=== PATIENT | male | born 1975 | race Caucasian/White ===

== ENCOUNTER 2020-06-06 19:55 | Emergency (ER) | payer BC ==
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
== END 2020-06-06 21:38 | disposition left against medical advice (07) ==
LOC: JD.ED 19:55
DX: S30.1XXA Contusion of abdominal wall, initial encounter (principal); S19.9XXA Unspecified injury of neck, initial encounter; R04.2 Hemoptysis; Y04.0XXA Assault by unarmed brawl or fight, initial encounter
CPT/HCPCS: 99283; 99284

== ENCOUNTER 2020-07-28 17:52 | Emergency (ER) | payer BC ==
[2020-07-28] MEDS ORDERED: Sodium Chloride 0.9% 10 ML Syringe FLUSH PRN (18:08)
--- NOTE | 2020-07-28 18:54 | EDM.PDOC ---
ED HPI GENERAL MEDICAL PROBLEM - General Chief Complaint: Respiratory Problem Stated Complaint: DIZZY,SOB AND SWELLING Time Seen by Provider: 07/28/20 18:08 Source of Information: Reports: Patient, RN Notes Reviewed History Limitations: Reports: No Limitations - History of Present Illness INITIAL COMMENTS - FREE TEXT/NARRATIVE: Patient is a 45-year-old male presenting to the emergency department with complaints of episodes of severe cough and subsequent shortness of breath. He was hospitalized at [facility] in [place] with a discharge 5 days ago. Significant other states that he was diagnosed with COPD, lymphoma, pneumonia, kidney disease and congestive heart failure. He was sent home on prednisone and amoxicillin which she is still taking. He also takes amlodipine, Spiriva, Xarelto, magnesium, and Bumex. Patient denies any chest pain. He does not feel short of breath at this time. States he will wake in the morning and during the evening choking on sputum. He describes it as yellowish in color and is occasionally blood-tinged. Significant other reports that while hospitalized at [facility] in [place], he did have a bronchoscopy completed and did not show any abnormalities within his lungs. He continues to smoke 1/2 pack of cigarettes per day and and also consumes a gallon of alcohol every 2 days. Patient is a poor historian. He does not know what medications he takes, and defers to his significant other for this information. He states that he does not want blood work completed and just wants breathing treatments to go home with. His significant other states that while in the hospital, he was receiving albuterol and Pulmicort breathing treatments which helped his symptoms. He was tested for Covid 5 days ago and found to be negative. He denies any fever. Symptoms of cough and shortness of breath have been consistent over the last few weeks. - Related Data Allergies Allergy/AdvReac Type Severity Reaction Status Date / Time No Known Allergies Allergy Verified 07/28/20 18:05 Home Meds: Home Meds Albuterol/Ipratropium [DuoNeb 3.0-0.5 MG/3 ML] 3 ml .XX Q4H PRN #15 neb 07/28/20 [Rx] Past Medical History - Past Health History Medical/Surgical History: Denies Medical/Surgical History Social & Family History - Tobacco Use Tobacco Use Status *Q: Current Every Day Tobacco User Years of Tobacco use: 30 Packs/Tins Daily: 0.5 - Caffeine Use Caffeine Use: Reports: None - Recreational Drug Use Recreational Drug Use: No ED ROS GENERAL - Review of Systems Review Of Systems: See Below Constitutional: Reports: No Symptoms HEENT: Reports: No Symptoms Respiratory: Reports: Shortness of Breath, Cough Cardiovascular: Reports: No Symptoms Endocrine: Reports: No Symptoms GI/Abdominal: Reports: No Symptoms : Reports: No Symptoms Musculoskeletal: Reports: No Symptoms Skin: Reports: No Symptoms Neurological: Reports: No Symptoms Psychiatric: Reports: No Symptoms Hematologic/Lymphatic: Reports: No Symptoms Immunologic: Reports: No Symptoms ED EXAM, GENERAL - Physical Exam Exam: See Below Exam Limited By: No Limitations General Appearance: Alert, WD/WN, No Apparent Distress Respiratory/Chest: No Respiratory Distress, Lungs Clear, Normal Breath Sounds, No Accessory Muscle Use, Chest Non-Tender Cardiovascular: Normal Peripheral Pulses, Regular Rate, Rhythm, No Edema, No Gallop, No JVD, No Murmur, No Rub GI/Abdominal: Normal Bowel Sounds, Soft, Non-Tender, No Organomegaly, No Distention, No Abnormal Bruit, No Mass Neurological: Alert, Oriented, CN II-XII Intact, Normal Cognition, Normal Gait, Normal Reflexes, No Motor/Sensory Deficits Psychiatric: Normal Affect, Normal Mood Skin Exam: Warm, Dry, Intact, Normal Color, No Rash Course - Vital Signs Last Recorded V/S: Last Vital Signs Temp 97.2 F 07/28/20 18:00 Pulse 66 07/28/20 18:00 Resp 16 07/28/20 18:00 BP 107/83 07/28/20 18:00 Pulse Ox 94 L 07/28/20 18:00 - Orders/Labs/Meds Meds: Medications Discontinued Medications Generic Name Dose Route Start Last Admin Trade Name Freq PRN Reason Stop Dose Admin Sodium Chloride 10 ml 07/28/20 18:08 Saline Flush FLUSH ASDIRECTED PRN Keep Vein Open - Re-Assessments/Exams Free Text/Narrative Re-Assessment/Exam: Patient is a 45-year-old male presenting to the emergency department with complaints of a harsh productive cough with subsequent shortness of breath. He has a diagnosed history of CHF, emphysema, COPD, lymphoma, and pneumonia. He is refusing blood work however, he has agreed to a chest x-ray. Discussed with the patient and his significant other that I am not going to force any treatment on him, however I will have him sign that he has declined blood work as this would be required for definitive diagnosis. I have ordered a 1 view chest x- ray. He is not wheezy at the time my exam, however discussed that I would be willing to send him home with DuoNeb breathing treatments as well as a nebulizer. He is currently on an oral steroid, and without further blood work, I will not be starting him on Pulmicort. He states he does have an appointment with his chemical laboratory tester, patient portal representative, and brickmason contractor, next week in [place]. He states that he will also see Dr. oCdy. 07/28/20 19:01 X-ray shows no evidence of pulmonary vascular congestion. There are no consolidations. Patient continues to refuse blood work. AMA paperwork for refusal of medical screening has been completed. I will provide him with DuoNeb breathing treatments as well as a nebulizer machine. Discharge instructions as documented. Departure - Departure Time of Disposition: 19:06 Disposition: Home, Self-Care 01 Clinical Impression: COPD (chronic obstructive pulmonary disease) Qualifiers: COPD type: unspecified COPD Qualified Code(s): J44.9 - Chronic obstructive pulmonary disease, unspecified - Discharge Information Prescriptions: Albuterol/Ipratropium [DuoNeb 3.0-0.5 MG/3 ML] 3 ml .XX Q4H PRN #15 neb PRN Reason: Shortness Of Breath Instructions: Chronic Obstructive Pulmonary Disease Exacerbation, [id number] Referrals: Tuyet Cody MD [Primary Care Provider] - Forms: ED Department Discharge Additional Instructions: You were seen in the emergency department today for recurrent severe coughing episodes with shortness of breath. Chest x-ray was completed and showed no acute abnormalities. You refused blood work at this time, although this would be beneficial to definitively diagnose you. You have been provided with a nebulizer machine as well as DuoNeb breathing treatments. He is use as needed for cough and shortness of breath. He should follow-up with your primary care provider, Dr. Cody, soon as possible, and keep your appointment with your specialist in [place]. If you experience any new or worsening symptoms, return to the emergency department for reevaluation. Sepsis Event Note (ED) - Evaluation Sepsis Screening Result: No Definite Risk
--- NOTE | 2020-07-29 08:41 | CR ---
PROCEDURE INFORMATION: Exam: XR Chest, 1 View Exam date and time: 07/28/2020 6:00 PM Age: 45 years old Clinical indication: Patient HX: Cough, SOB TECHNIQUE: Imaging protocol: XR of the chest Views: 1 view. COMPARISON: No relevant prior studies available. FINDINGS: Lungs: There is small linear left basilar opacity. No focal consolidation. Pleural space: Unremarkable. No pleural effusion. No pneumothorax. Heart/Mediastinum: Unremarkable. No cardiomegaly. Bones/joints: Unremarkable. IMPRESSION: Left lower lung scarring versus subsegmental atelectasis. Thank you for allowing us to participate in the care of your patient. Dictated and Authenticated by: Ehsan Milian MD 07/28/2020 8:12 PM Central Time ([place] & [place]) [facility]
== END 2020-07-28 19:16 | disposition home or self-care (01) ==
LOC: JD.ED 17:52
DX: J44.9 Chronic obstructive pulmonary disease, unspecified (principal); F17.210 Nicotine dependence, cigarettes, uncomplicated
CPT/HCPCS: 71045; 71045-26; 99283; 99284-25

== ENCOUNTER 2020-12-19 06:44 | Emergency (ER) | payer BC ==
[2020-12-19] MEDS ORDERED: Sodium Chloride 0.9% 10 ML Syringe FLUSH PRN (07:00)
[2020-12-19] MEDS ORDERED: Sodium Chloride 0.9% 1,000 ML IV SCH (07:00)
[2020-12-19] MEDS ORDERED: Diltiazem 50 MG/10 ML SDV IVPUSH ONE (07:01)
--- NOTE | 2020-12-19 07:08 | EDM.PDOC ---
ED HPI GENERAL MEDICAL PROBLEM - General Chief Complaint: Chest Pain Stated Complaint: CHEST PAIN Time Seen by Provider: 12/19/20 06:54 Source of Information: Reports: Patient History Limitations: Reports: No Limitations - History of Present Illness INITIAL COMMENTS - FREE TEXT/NARRATIVE: The patient presents with chest pain and shortness of breath. He woke up with this at 0330. The chest pain has improved but he is still short of breath and it feels like his heart is racing. He has no fever, chills, cough, congestion, runny nose, abdominal pain, nausea or vomiting. He does have a history of hypertension, atrial fibrillation, [place] and hypothyroidism. He is on eliquis 2 times per day. He admits to being a heavy drinker years ago but he has quit. Onset: Sudden Duration: Hour(s): Location: Reports: Chest Quality: Reports: Sharp Severity: Mild Improves with: Reports: None Worsens with: Reports: None Associated Symptoms: Reports: Chest Pain, Shortness of Breath. Denies: Cough, Fever/Chills, Headaches, Nausea/Vomiting Middle Chest Pain Score (Numeric/FACES): 9 - Related Data Allergies Allergy/AdvReac Type Severity Reaction Status Date / Time No Known Allergies Allergy Verified 12/19/20 06:52 Home Meds: Home Meds Apixaban [Eliquis] 5 mg PO BID 12/19/20 [History] Ipratropium/Albuterol Sulfate [Iprat-Albut 0.5-3(2.5) mg/3 ml] 3 ml NEB DAILY 12/19/20 [History] Levothyroxine [Synthroid] 100 mcg PO DAILY 12/19/20 [History] Magnesium 400 mg PO DAILY 12/19/20 [History] Metoprolol Succinate 200 mg PO DAILY 12/19/20 [History] Potassium Chloride 20 meq PO DAILY #30 tablet.er 12/19/20 [Rx] Tiotropium [Spiriva HandiHaler] 18 mcg INH DAILY 12/19/20 [History] atorvaSTATin [Lipitor] 20 mg PO DAILY 12/19/20 [History] Past Medical History - Past Health History Medical/Surgical History: Denies Medical/Surgical History Cardiovascular History: Reports: Afib, Hypertension, [place] Respiratory History: Reports: Asthma, COPD Endocrine/Metabolic History: Reports: Hypothyroidism - Past Surgical History HEENT Surgical History: Reports: Tonsillectomy, Other (See Below) Other HEENT Surgeries/Procedures: ear sx Social & Family History - Tobacco Use Tobacco Use Status *Q: Current Every Day Tobacco User Years of Tobacco use: 30 Packs/Tins Daily: 3 - Caffeine Use Caffeine Use: Reports: Soda - Recreational Drug Use Recreational Drug Use: No ED ROS GENERAL - Review of Systems Review Of Systems: See Below Constitutional: Reports: No Symptoms HEENT: Reports: No Symptoms Respiratory: Reports: Shortness of Breath. Denies: Cough Cardiovascular: Reports: Chest Pain, Palpitations Endocrine: Reports: No Symptoms GI/Abdominal: Reports: No Symptoms : Reports: No Symptoms Musculoskeletal: Reports: No Symptoms ED EXAM, GENERAL - Physical Exam Exam: See Below Exam Limited By: No Limitations General Appearance: Alert, No Apparent Distress Ears: Normal External Exam Nose: Normal Inspection Throat/Mouth: Normal Inspection Head: Atraumatic, Normocephalic Neck: Normal Inspection Respiratory/Chest: No Respiratory Distress, Lungs Clear, Normal Breath Sounds Cardiovascular: No Edema, No Murmur, Tachycardia, Irregularly Irregular GI/Abdominal: Soft, Non-Tender, No Organomegaly, No Mass Back Exam: Normal Inspection Extremities: Normal Inspection #1 Interpretation EKG Date: 12/19/20 Time: 06:48 Rhythm: A-Fib Rate (Beats/Min): 140 [place]: LAD-Left [place] Deviation P-Wave: Absent QRS: Normal ST-T: Normal QT: Normal Course - Vital Signs Last Recorded V/S: Last Vital Signs Temp 97.1 F 12/19/20 07:29 Pulse 112 H 12/19/20 07:29 Resp 13 12/19/20 07:29 BP 115/78 12/19/20 07:29 Pulse Ox 94 L 12/19/20 07:29 - Orders/Labs/Meds Orders: Active Orders 24 hr Category Date Time Status Cardiac Monitoring [RC] . DIRECTED Care 12/19/20 07:00 Active EKG Documentation Completion [RC] STAT Care 12/19/20 07:00 Active Peripheral IV Care [RC] . DIRECTED Care 12/19/20 07:00 Active Diltiazem [Cardizem] 100 mg Med 12/19/20 07:15 Active Sodium Chloride 0.9% [Normal Saline] 100 ml IV TITRATE Sodium Chloride 0.9% [Normal Saline] 1,000 ml Med 12/19/20 07:00 Active IV ASDIRECTED Sodium Chloride 0.9% [Saline Flush] Med 12/19/20 07:00 Active 10 ml FLUSH ASDIRECTED PRN Peripheral IV Insertion Adult [OM.PC] Stat Oth 12/19/20 07:00 Ordered Medication Orders Diltiazem HCl 100 mg/ Sodium (Chloride) 100 mls @ 10 mls/hr IV TITRATE PRICE; Protocol Last Admin: 12/19/20 07:20 Dose: 10 mg/hr, 10 mls/hr Documented by: KAROLYN Sodium Chloride (Normal Saline) 1,000 mls @ 125 mls/hr IV ASDIRECTED PRICE Last Admin: 12/19/20 07:20 Dose: 125 mls/hr Documented by: KAROLYN Sodium Chloride (Sodium Chloride 0.9% 10 Ml Syringe) 10 ml FLUSH ASDIRECTED PRN PRN Reason: Keep Vein Open Last Admin: 12/19/20 07:20 Dose: 10 ml Documented by: KAROLYN Labs: Laboratory Tests 12/19/20 12/19/20 12/19/20 Range/Units 06:50 06:50 06:50 WBC 6.70 (4.23-9.07) K/mm3 RBC 4.24 L (4.63-6.08) M/mm3 Hgb 14.8 (13.7-17.5) gm/dl Hct 43.9 (40.1-51.0) % MCV 103.5 H (79.0-92.2) fl MCH 34.9 H (25.7-32.2) pg MCHC 33.7 (32.2-35.5) g/dl RDW Std Deviation 52.7 H (35.1-43.9) fL Plt Count 324 (163-337) K/mm3 MPV 9.6 (9.4-12.3) fl Neut % (Auto) 64.0 (34.0-67.9) % Lymph % (Auto) 20.4 L (21.8-53.1) % Haskell % (Auto) 12.4 H (5.3-12.2) % Eos % (Auto) 2.5 (0.8-7.0) Baso % (Auto) 0.6 (0.1-1.2) % Neut # (Auto) 4.28 (1.78-5.38) K/mm3 Lymph # (Auto) 1.37 (1.32-3.57) K/mm3 [place] # (Auto) 0.83 H (0.30-0.82) K/mm3 Eos # (Auto) 0.17 (0.04-0.54) K/mm3 Baso # (Auto) 0.04 (0.01-0.08) K/mm3 Sodium 140 (136-145) mEq/L Potassium 3.0 L (3.5-5.1) mEq/L Chloride 100 (98-107) mEq/L Carbon Dioxide 25 (21-32) mEq/L Anion Gap 18.0 H (5-15) BUN 17 (7-18) mg/dL Creatinine 1.3 (0.7-1.3) mg/dL Est Cr Clr Drug Dosing 74.82 mL/min Estimated GFR (MDRD) 59 (>60) mL/min BUN/Creatinine Ratio 13.1 L (14-18) Glucose 98 (74-106) mg/dL Calcium 8.7 (8.5-10.1) mg/dL Magnesium 1.6 L (1.8-2.4) mg/dl Total Bilirubin 0.5 (0.2-1.0) mg/dL AST 34 (15-37) U/L ALT 23 (16-63) U/L Alkaline Phosphatase 79 (46-116) U/L Troponin I < 0.017 (0.00-0.056) ng/mL Total Protein 7.2 (6.4-8.2) g/dl Albumin 3.8 (3.4-5.0) g/dl Globulin 3.4 gm/dL Albumin/Globulin Ratio 1.1 (1-2) Free T4 0.92 (0.76-1.46) ng/dL TSH 3rd Generation 74.502 H (0.358-3.74) uIU/mL SARS-CoV-2 RNA (ADRIANA) (NEGATIVE) 12/19/20 Range/Units 07:22 WBC (4.23-9.07) K/mm3 RBC (4.63-6.08) M/mm3 Hgb (13.7-17.5) gm/dl Hct (40.1-51.0) % MCV (79.0-92.2) fl MCH (25.7-32.2) pg MCHC (32.2-35.5) g/dl RDW Std Deviation (35.1-43.9) fL Plt Count (163-337) K/mm3 MPV (9.4-12.3) fl Neut % (Auto) (34.0-67.9) % Lymph % (Auto) (21.8-53.1) % [place] % (Auto) (5.3-12.2) % Eos % (Auto) (0.8-7.0) Baso % (Auto) (0.1-1.2) % Neut # (Auto) (1.78-5.38) K/mm3 Lymph # (Auto) (1.32-3.57) K/mm3 [place] # (Auto) (0.30-0.82) K/mm3 Eos # (Auto) (0.04-0.54) K/mm3 Baso # (Auto) (0.01-0.08) K/mm3 Sodium (136-145) mEq/L Potassium (3.5-5.1) mEq/L Chloride (98-107) mEq/L Carbon Dioxide (21-32) mEq/L Anion Gap (5-15) BUN (7-18) mg/dL Creatinine (0.7-1.3) mg/dL Est Cr Clr Drug Dosing mL/min Estimated GFR (MDRD) (>60) mL/min BUN/Creatinine Ratio (14-18) Glucose (74-106) mg/dL Calcium (8.5-10.1) mg/dL Magnesium (1.8-2.4) mg/dl Total Bilirubin (0.2-1.0) mg/dL AST (15-37) U/L ALT (16-63) U/L Alkaline Phosphatase (46-116) U/L Troponin I (0.00-0.056) ng/mL Total Protein (6.4-8.2) g/dl Albumin (3.4-5.0) g/dl Globulin gm/dL Albumin/Globulin Ratio (1-2) Free T4 (0.76-1.46) ng/dL TSH 3rd Generation (0.358-3.74) uIU/mL SARS-CoV-2 RNA (ADRIANA) Negative (NEGATIVE) Meds: Medications Generic Name Dose Route Start Last Admin Trade Name Freq PRN Reason Stop Dose Admin Diltiazem HCl 100 mg/ Sodium 100 mls @ 10 mls/hr 12/19/20 07:15 12/19/20 07:20 Chloride IV 10 mg/hr TITRATE PRICE 10 mls/hr Administration Protocol 10 MG/HR Sodium Chloride 1,000 mls @ 125 mls/hr 12/19/20 07:00 12/19/20 07:20 Normal Saline IV 125 mls/hr ASDIRECTED PRICE Administration Sodium Chloride 10 ml 12/19/20 07:00 12/19/20 07:20 Sodium Chloride 0.9% 10 Ml Syringe FLUSH 10 ml ASDIRECTED PRN Administration Keep Vein Open Discontinued Medications Generic Name Dose Route Start Last Admin Trade Name Freq PRN Reason Stop Dose Admin Diltiazem HCl 10 mg 12/19/20 07:01 12/19/20 07:19 Diltiazem 50 Mg/10 Ml Sdv IVPUSH 12/19/20 07:02 10 mg ONETIME ONE Administration - Re-Assessments/Exams Free Text/Narrative Re-Assessment/Exam: 12/19/20 07:07 I ordered an IV NS at 125mL/hr, cardizem bolus 10mg IV and a cardizem drip at 10mg/hr, EKG, CXR and labs. His EKG shows atrial fibrillation at a rate of 140. I ordered a cardizem bolus and drip. 12/19/20 10:05 His CBC looks good. His K was low at 3. His anion gap was elevated at 18. His magnesium was low at 1.6. His troponin is negative. His TSH was elevated at 74.502. I checked a T4 and it was normal. He is COVID negative. He did convert a few times here in the ER and then he would go right back into it. I was then going to admit him but he does not want to be admitted. I will keep him on his same doses. I will add potassium and have him recheck his TSH in a week. His rate has slowed down but he has not converted like I had hoped. Departure - Departure Time of Disposition: 10:10 Disposition: Home, Self-Care 01 Condition: Good Clinical Impression: Atypical chest pain, Atrial fibrillation with RVR, Hypokalemia Prescriptions: Potassium Chloride 20 meq PO DAILY #30 tablet.er Forms: ED Department Discharge Additional Instructions: Take your medications as prescribed. Take the potassium daily. You thyroid stimulating hormone test was elevated. Have that rechecked within a week. Please return if you are worse. Sepsis Event Note (ED) - Evaluation Sepsis Screening Result: No Definite Risk - Focused Exam Vital Signs: Vital Signs Temp Pulse Resp BP Pulse Ox 12/19/20 07:29 97.1 F 112 H 13 115/78 94 L 12/19/20 06:49 96.8 F L 157 H 17 119/86 96 - My Orders Last 24 Hours: My Active Orders 12/19/20 07:00 Cardiac Monitoring [RC] . DIRECTED EKG Documentation Completion [RC] STAT Peripheral IV Care [RC] . DIRECTED Sodium Chloride 0.9% [Normal Saline] 1,000 ml IV ASDIRECTED Sodium Chloride 0.9% [Saline Flush] 10 ml FLUSH ASDIRECTED PRN Peripheral IV Insertion Adult [OM.PC] Stat 12/19/20 07:15 Diltiazem [Cardizem] 100 mg Sodium Chloride 0.9% [Normal Saline] 100 ml IV TITRATE - Assessment/Plan Last 24 Hours: My Active Orders 12/19/20 07:00 Cardiac Monitoring [RC] . DIRECTED EKG Documentation Completion [RC] STAT Peripheral IV Care [RC] . DIRECTED Sodium Chloride 0.9% [Normal Saline] 1,000 ml IV ASDIRECTED Sodium Chloride 0.9% [Saline Flush] 10 ml FLUSH ASDIRECTED PRN Peripheral IV Insertion Adult [OM.PC] Stat 12/19/20 07:15 Diltiazem [Cardizem] 100 mg Sodium Chloride 0.9% [Normal Saline] 100 ml IV TITRATE
[2020-12-19] MEDS ORDERED: Diltiazem 100 MG in Sodium Chloride 0.9% 100 ML IV SCH (07:15)
--- NOTE | 2020-12-19 08:40 | CR ---
Chest: Portable view of the chest was obtained. Comparison: No prior chest imaging is available. Minimal linear densities are noted within the lateral left costophrenic angle compatible with slight scarring or minimal atelectasis. Lungs are clear with no acute parenchymal change otherwise being seen. Heart size is normal. Slight tortuosity of the thoracic aorta is seen. Impression: 1. Nothing acute is appreciated on portable chest x-ray. Diagnostic code #2
== END 2020-12-19 10:21 | disposition home or self-care (01) ==
LOC: JD.ED 06:44
DX: I48.91 Unspecified atrial fibrillation (principal); R07.89 Other chest pain; E87.6 Hypokalemia; I10 Essential (primary) hypertension; I25.2 Old myocardial infarction; J44.9 Chronic obstructive pulmonary disease, unspecified; E03.9 Hypothyroidism, unspecified; Z79.899 Other long term (current) drug therapy; Z72.0 Tobacco use; Z79.01 Long term (current) use of anticoagulants
CPT/HCPCS: 36415; 71045; 80053; 83735; 84439; 84443; 84484; 85025; 87635; 93005; 96365; 96366; 99285; J3490; J7030; 93010; 99284; U0002

== ENCOUNTER 2021-02-03 06:39 | Emergency (ER) | payer BC ==
[2021-02-03] MEDS ORDERED: Diltiazem 50 MG/10 ML SDV IVPUSH ONE (07:14)
[2021-02-03] MEDS ORDERED: Aspirin 81 MG Tab.Chew PO ONE (07:14)
[2021-02-03] MEDS ORDERED: Diltiazem 100 MG in Sodium Chloride 0.9% 100 ML IV SCH (07:15)
--- NOTE | 2021-02-03 07:17 | EDM.PDOC ---
ED HPI GENERAL MEDICAL PROBLEM - General Chief Complaint: Chest Pain Stated Complaint: CHEST PAIN Time Seen by Provider: 02/03/21 07:10 - History of Present Illness INITIAL COMMENTS - FREE TEXT/NARRATIVE: 45-year-old male presents to the emergency room with shortness of breath chest discomfort palpitations. This started around 4:00 this morning. He awoke with it. He is got some shortness of breath and some chest discomfort. He has done this in the past. He has a history of atrial fib and has been here in the past with the rapid ventricular response. He presents the emergency room with a pulse in the 140s in a similar scenario as to a prior visit. The patient describes episodes like this that occur frequently however this episode is a little worse than most the other ones. Patient is not positive what medications he is actually taking at this time. Patient denies any other complaints. Patient has some underlying lung problems. Uses Spiriva for this. He is treated for hypothyroidism. Chest Pain Score (Numeric/FACES): 8 - Related Data Allergies Allergy/AdvReac Type Severity Reaction Status Date / Time No Known Allergies Allergy Verified 02/03/21 06:50 Home Meds: Home Meds Apixaban [Eliquis] 5 mg PO BID 12/19/20 [History] Ipratropium/Albuterol Sulfate [Iprat-Albut 0.5-3(2.5) mg/3 ml] 3 ml NEB DAILY 12/19/20 [History] Levothyroxine [Synthroid] 100 mcg PO DAILY 12/19/20 [History] Magnesium 400 mg PO DAILY 12/19/20 [History] Metoprolol Succinate 200 mg PO DAILY 12/19/20 [History] Potassium Chloride 20 meq PO DAILY #30 tablet.er 12/19/20 [Rx] Tiotropium [Spiriva HandiHaler] 18 mcg INH DAILY 12/19/20 [History] atorvaSTATin [Lipitor] 20 mg PO DAILY 12/19/20 [History] Past Medical History - Past Health History Medical/Surgical History: Denies Medical/Surgical History Cardiovascular History: Reports: Afib, Hypertension, NC Respiratory History: Reports: Asthma, COPD Endocrine/Metabolic History: Reports: Hypothyroidism - Infectious Disease History Infectious Disease History: Reports: None - Past Surgical History HEENT Surgical History: Reports: Tonsillectomy, Other (See Below) Other HEENT Surgeries/Procedures: ear sx Social & Family History - Tobacco Use Tobacco Use Status *Q: Current Every Day Tobacco User Years of Tobacco use: 20 Packs/Tins Daily: 2 - Caffeine Use Caffeine Use: Reports: Soda - Recreational Drug Use Recreational Drug Use: No ED ROS GENERAL - Review of Systems Review Of Systems: See Below Constitutional: Reports: No Symptoms HEENT: Reports: No Symptoms Respiratory: Reports: Shortness of Breath. Denies: Pleuritic Chest Pain Cardiovascular: Reports: Chest Pain, Palpitations. Denies: Edema, Syncope Endocrine: Reports: No Symptoms GI/Abdominal: Reports: No Symptoms : Reports: No Symptoms Musculoskeletal: Reports: No Symptoms ED EXAM, GENERAL - Physical Exam Exam: See Below Exam Limited By: No Limitations General Appearance: Alert, No Apparent Distress, Other (On telemetry he is in A. fib with RVR rates approximately 140 as high as 157 and his lowest the low 130s from what I have seen.) Head: Atraumatic, Normocephalic Neck: Normal Inspection, Supple, Non-Tender, Full Range of Motion Respiratory/Chest: No Respiratory Distress, Lungs Clear, Normal Breath Sounds Cardiovascular: No Edema, No Murmur, Tachycardia, Irregularly Irregular GI/Abdominal: Normal Bowel Sounds, Soft, Non-Tender Back Exam: Normal Inspection. No: CVA Tenderness (L), CVA Tenderness (R) Extremities: Normal Inspection, No Pedal Edema #1 Interpretation EKG Date: 02/03/21 Rhythm: Other (Atrial fibrillation with rapid ventricular response rate 130 but is high as the 170s as low as the 90s) Widener: RAD-Right Widener Deviation P-Wave: Absent QRS: Other (Normal duration low voltage) ST-T: Other (Nonspecific nondiagnostic subtle changes probably related to the tachycardia) QT: Normal Comparison: No Change EKG Interpretation Comments: Abnormal #2 Interpretation EKG Date: 02/03/21 Rhythm: NSR Rate (Beats/Min): 71 Widener: Normal P-Wave: Present QRS: Other (Low voltage) ST-T: Other (Minimal changes) QT: Normal Comparison: Change From Previous EKG (Compared to early December of this year the patient is no longer in A. fib.) EKG Interpretation Comments: Abnormal EKG Course - Vital Signs Last Recorded V/S: Last Vital Signs Temp 36.7 C 02/03/21 06:45 Pulse 144 H 02/03/21 06:45 Resp 20 02/03/21 06:45 BP 114/96 H 02/03/21 06:45 Pulse Ox 96 02/03/21 06:45 - Orders/Labs/Meds Orders: Active Orders 24 hr Category Date Time Status EKG 12 Lead [EKG Documentation Completion] [] ROUTINE Care 02/03/21 08:21 Active EKG 12 Lead [EKG Documentation Completion] [] STAT Care 02/03/21 06:45 Active Diltiazem [Cardizem] 100 mg Med 02/03/21 07:15 Active Sodium Chloride 0.9% [Normal Saline] 100 ml IV TITRATE Medication Orders Diltiazem HCl 100 mg/ Sodium (Chloride) 100 mls @ 10 mls/hr IV TITRATE PRICE; Protocol Last Admin: 02/03/21 07:37 Dose: 10 mg/hr, 10 mls/hr Documented by: ISAURO Labs: Laboratory Tests 02/03/21 02/03/21 02/03/21 Range/Units 06:55 06:55 06:55 WBC 7.22 (4.23-9.07) K/mm3 RBC 4.57 L (4.63-6.08) M/mm3 Hgb 15.7 (13.7-17.5) gm/dl Hct 46.2 (40.1-51.0) % MCV 101.1 H (79.0-92.2) fl MCH 34.4 H (25.7-32.2) pg MCHC 34.0 (32.2-35.5) g/dl RDW Std Deviation 54.5 H (35.1-43.9) fL Plt Count 277 (163-337) K/mm3 MPV 9.5 (9.4-12.3) fl Neut % (Auto) 65.4 (34.0-67.9) % Lymph % (Auto) 19.4 L (21.8-53.1) % [place] % (Auto) 12.3 H (5.3-12.2) % Eos % (Auto) 1.8 (0.8-7.0) Baso % (Auto) 1.0 (0.1-1.2) % Neut # (Auto) 4.72 (1.78-5.38) K/mm3 Lymph # (Auto) 1.40 (1.32-3.57) K/mm3 [place] # (Auto) 0.89 H (0.30-0.82) K/mm3 Eos # (Auto) 0.13 (0.04-0.54) K/mm3 Baso # (Auto) 0.07 (0.01-0.08) K/mm3 Sodium 137 (136-145) mEq/L Potassium 3.2 L (3.5-5.1) mEq/L Chloride 99 (98-107) mEq/L Carbon Dioxide 24 (21-32) mEq/L Anion Gap 17.2 H (5-15) BUN 24 H (7-18) mg/dL Creatinine 1.3 (0.7-1.3) mg/dL Est Cr Clr Drug Dosing 72.53 mL/min Estimated GFR (MDRD) 59 (>60) mL/min BUN/Creatinine Ratio 18.5 H (14-18) Glucose 102 H (70-99) mg/dL Calcium 8.8 (8.5-10.1) mg/dL Magnesium 1.6 L (1.8-2.4) mg/dL Total Bilirubin 0.5 (0.2-1.0) mg/dL AST 40 H (15-37) U/L ALT 34 (16-63) U/L Alkaline Phosphatase 98 (46-116) U/L Troponin I < 0.017 (0.00-0.056) ng/mL Total Protein 7.5 (6.4-8.2) g/dl Albumin 4.3 (3.4-5.0) g/dl Globulin 3.2 gm/dL Albumin/Globulin Ratio 1.3 (1-2) TSH 3rd Generation 44.867 H (0.358-3.74) uIU/mL Meds: Medications Generic Name Dose Route Start Last Admin Trade Name Freq PRN Reason Stop Dose Admin Diltiazem HCl 100 mg/ Sodium 100 mls @ 10 mls/hr 02/03/21 07:15 02/03/21 07:37 Chloride IV 10 mg/hr TITRATE PRICE 10 mls/hr Administration Protocol 10 MG/HR Discontinued Medications Generic Name Dose Route Start Last Admin Trade Name Freq PRN Reason Stop Dose Admin Aspirin 324 mg 02/03/21 07:14 02/03/21 07:35 Aspirin 81 Mg Tab.Chew PO 02/03/21 07:15 324 mg ONETIME ONE Administration Diltiazem HCl 10 mg 02/03/21 07:14 02/03/21 07:35 Diltiazem 50 Mg/10 Ml Sdv IVPUSH 02/03/21 07:15 10 mg ONETIME ONE Administration Magnesium Oxide 800 mg 02/03/21 08:36 Magnesium Oxide 400 Mg Tab PO 02/03/21 08:37 ONETIME ONE - Re-Assessments/Exams Free Text/Narrative Re-Assessment/Exam: 02/03/21 07:25 I will give him a 10 mg dose of ties and bolus he seemed to respond favorably to this in the past and start a drip it does not appear that he is on oral diltiazem he is on near maximal dose of his metoprolol may consider adding oral diltiazem. 02/03/21 08:40 Patient converted into sinus we shut off his diltiazem drip. He states he still having a little bit of chest discomfort. Repeat EKG does not show any diagnostic ischemia. We will get a second troponin at 930, and continue to monitor. His potassium is low we will give him some oral potassium his magnesium is low we will give him some oral magnesium. TSH is quite elevated. 02/03/21 08:48 The patient is insistent on going home at this point. I discussed the disadvantages of this but he would still like to go home. 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 The patient states the pain he is having at this point is pretty much the pain he has every day anyway. I still recommend he is stick around for a second troponin but he is declining this. As it turns out the patient is currently taking amiodarone that could be altering his thyroid studies. However, it still needs very close follow-up. Departure - Departure Time of Disposition: 08:50 Disposition: Home, Self-Care 01 Clinical Impression: Atrial fibrillation with RVR, Hypokalemia, Chest pain - Discharge Information Instructions: Atrial Fibrillation, [id number] Referrals: Elissa Singh NP [Primary Care Provider] - Forms: ED Department Discharge Additional Instructions: Return to the emergency room with any questions problems or worsening symptoms. Follow-up with the physician the controls your thyroid and see if this needs to be adjusted. Call your furnace operator and tender today and schedule follow-up. Please quit smoking. Get plenty of rest do not work today. As we discussed make a list of your medications with the doses and how often you take them and carry it with you at all times. Increase your potassium to 40 mEq for the next 3 days and then resume normal dosing. Take magnesium oxide 400 mg 2 tablets daily for 3 days and then 1 tablet daily thereafter. Sepsis Event Note (ED) - Evaluation Sepsis Screening Result: No Definite Risk - Focused Exam Vital Signs: Vital Signs Temp Pulse Resp BP Pulse Ox 02/03/21 06:45 36.7 C 144 H 20 114/96 H 96 - My Orders Last 24 Hours: My Active Orders 02/03/21 06:45 EKG 12 Lead [EKG Documentation Completion] [RC] STAT 02/03/21 07:15 Diltiazem [Cardizem] 100 mg Sodium Chloride 0.9% [Normal Saline] 100 ml IV TITRATE 02/03/21 08:21 EKG 12 Lead [EKG Documentation Completion] [RC] ROUTINE - Assessment/Plan Last 24 Hours: My Active Orders 02/03/21 06:45 EKG 12 Lead [EKG Documentation Completion] [RC] STAT 02/03/21 07:15 Diltiazem [Cardizem] 100 mg Sodium Chloride 0.9% [Normal Saline] 100 ml IV TITRATE 02/03/21 08:21 EKG 12 Lead [EKG Documentation Completion] [RC] ROUTINE
[2021-02-03] MEDS ORDERED: Magnesium Oxide 400 MG Tab PO ONE (08:36)
== END 2021-02-03 09:05 | disposition home or self-care (01) ==
LOC: JD.ED 06:39
DX: I48.91 Unspecified atrial fibrillation (principal); E87.6 Hypokalemia; I10 Essential (primary) hypertension; I25.2 Old myocardial infarction; J44.9 Chronic obstructive pulmonary disease, unspecified; E03.9 Hypothyroidism, unspecified; Z79.899 Other long term (current) drug therapy; Z72.0 Tobacco use; Z79.01 Long term (current) use of anticoagulants
CPT/HCPCS: 36415; 80053; 83735; 84443; 84484; 85025; 93005; 96365; 99285; A9270; J3490; 93010; 99284

== ENCOUNTER 2022-01-22 13:21 | Emergency (ER) | payer BC ==
[2022-01-22] MEDS ORDERED: Sodium Chloride 0.9% 10 ML Syringe FLUSH PRN (13:28)
[2022-01-22] MEDS ORDERED: Sodium Chloride 0.9% 1,000 ML IV SCH (13:30)
[2022-01-22] MEDS ORDERED: Labetalol 100 MG/20 ML MDV IVPUSH ONE (14:29)
[2022-01-22 14:36] LABS: ACETAMINOPHEN 0 ug/mL (10-30)
== END 2022-01-22 16:25 | disposition home or self-care (01) ==
LOC: JD.ED 13:21
DX: R00.0 Tachycardia, unspecified (principal); N28.9 Disorder of kidney and ureter, unspecified; R45.1 Restlessness and agitation; I48.91 Unspecified atrial fibrillation; I10 Essential (primary) hypertension; E03.9 Hypothyroidism, unspecified; I25.2 Old myocardial infarction; J44.9 Chronic obstructive pulmonary disease, unspecified; Z79.899 Other long term (current) drug therapy
CPT/HCPCS: 36415; 80053; 80143; 80162; 80179; 80306; 80307; 83735; 84443; 84484; 85025; 93005; 96374; 99285; J3490; J7030; 99284

== ENCOUNTER 2022-04-27 15:30 | Emergency (ER) | payer BC, MEDICAID, OTHER ==
[2022-04-27] MEDS ORDERED: Sodium Chloride 0.9% 10 ML Syringe FLUSH PRN (15:51)
[2022-04-27] MEDS ORDERED: Albuterol 0.083% 2.5 MG/3 ML Neb Soln NEB ONE (16:08)
[2022-04-27] MEDS ORDERED: predniSONE 20 MG Tab PO ONE (16:08)
[2022-04-27] MEDS ORDERED: Nicotine 21 MG/24 Hr Patch TRDERM ONE (16:13)
== END 2022-04-27 16:53 | disposition home or self-care (01) ==
LOC: JD.ED 15:30
DX: J44.1 Chronic obstructive pulmonary disease with (acute) exacerbation (principal); I48.91 Unspecified atrial fibrillation; I10 Essential (primary) hypertension; I25.2 Old myocardial infarction; E03.9 Hypothyroidism, unspecified; F17.210 Nicotine dependence, cigarettes, uncomplicated; Z79.899 Other long term (current) drug therapy; Z79.01 Long term (current) use of anticoagulants
CPT/HCPCS: 71046; 94640; 99285; A9270; J7512; 99284

== ENCOUNTER 2024-02-22 23:55 | Emergency (ER) | payer MEDICAID ==
[2024-02-23 00:20] LABS: BASOPHILS ABSOLUTE AUTO 0.1 K/mm3 (0.0-0.2); BASOPHILS PERCENT AUTO 1.2 % (0.0-1.0); EOSINOPHILS ABSOLUTE AUTO 0.1 K/mm3 (0.0-0.4); EOSINOPHILS PERCENT AUTO 1.3 % (0.0-6.0); HEMATOCRIT 36.5 % (42.0-52.0); HEMOGLOBIN 13.1 gm/dl (14.0-18.0); IMMATURE GRAN ABSOLUTE AUTO 0.03 K/mm3 (0.00-0.05); IMMATURE GRAN PERCENT AUTO 0.5 % (0.0-0.4); LYMPHOCYTES ABSOLUTE AUTO 1.7 K/mm3 (1.0-4.8); LYMPHOCYTES PERCENT AUTO 28.5 % (24.0-44.0); MEAN CORPUSCULAR HEMOGLOBIN 37.9 pg (28.0-32.0); MEAN CORPUSCULAR HGB CONC 35.9 g/dl (32.0-36.0); MEAN CORPUSCULAR VOLUME 105.5 fl (83.0-99.0); MEAN PLATELET VOLUME 10.4 fl (9.4-12.4); MONOCYTES PERCENT AUTO 16.3 % (0.0-8.0); NEUTROPHILS ABSOLUTE AUTO 3.1 K/mm3 (1.8-7.7); NEUTROPHILS PERCENT AUTO 52.2 % (41.0-71.0); NRBC ABSOLUTE 0.02 (0.00-0.02); NRBC PERCENT 0.3 % (0.0-0.2); PLATELET COUNT,PLT 143 K/mm3 (150-400); RED BLOOD CELL COUNT 3.46 M/mm3 (4.52-5.90); WHITE BLOOD CELL COUNT,WBC 5.94 K/mm3 (3.9-11.3)
[2024-02-23] MEDS ORDERED: Sodium Chloride 0.9% 1,000 ML IV SCH (00:45)
[2024-02-23 00:57] LABS: A/G RATIO 1.2 (1-2); ALBUMIN 4.1 g/dl (3.4-5.0); ANION GAP 23.3 (5-15); BILIRUBIN TOTAL 1.4 mg/dL (0.2-1.0); BUN/CREATININE RATIO 10.6 (14-18); CALCIUM 9.5 mg/dL (8.5-10.1); CREATININE 1.8 mg/dL (0.7-1.3); EST CRCL DRUG DOSING (CG) 50.69 mL/min; POTASSIUM,K 3.3 mEq/L (3.5-5.1); PROTEIN TOTAL,TP 7.6 g/dl (6.4-8.2)
[2024-02-23] MEDS: Iopamidol 612 MG/ML 100 ML Bottle IVPUSH ONE (02:05)
== END 2024-02-23 03:05 | disposition home or self-care (01) ==
LOC: JD.ED 23:55
DX: R07.9 Chest pain, unspecified (principal); K85.20 Alcohol induced acute pancreatitis without necrosis or infection; I13.0 Hypertensive heart and chronic kidney disease with heart failure and stage 1 through stage 4 chronic kidney disease, or unspecified chronic kidney disease; I50.9 Heart failure, unspecified; N18.9 Chronic kidney disease, unspecified; R94.5 Abnormal results of liver function studies; I25.2 Old myocardial infarction; J44.9 Chronic obstructive pulmonary disease, unspecified; E03.9 Hypothyroidism, unspecified; I48.91 Unspecified atrial fibrillation; Z79.01 Long term (current) use of anticoagulants; Z79.890 Hormone replacement therapy; Z79.899 Other long term (current) drug therapy
CPT/HCPCS: 36415; 71045; 74177; 80053; 83690; 83880; 84484; 85025; 85379; 93005; 99285; Q9967